=== PATIENT | female | born 1965 | race Caucasian/White ===

== ENCOUNTER → 2016-12-04 | Outpatient (CLI) | payer MEDICARE, OTHER ==
[~2016-12-04] MED LIST: AMPYRA10 MG PO; AMRIX15 MG PO; AUBAGIO14 MG PO; ESOMEPRAZOLE MA40 MG PO; LORTAB 5-325 M1 EACH PO; NEURONTIN 300300 MG PO; NORCO 10-325 T1 EACH PO; SYMMETREL 100100 MG PO; VENTOLIN INHALER INH
[2016-12-04 08:42] LABS: HEMOGLOBIN 13.6 gm/dl (12.3-15.3); RED BLOOD COUNT 6.82 M/UL (4.00-5.10); WHITE BLOOD COUNT 6.1 K/UL (4.5-11.0)
[2016-12-04 08:58] LABS: BUN/CREATININE RATIO 11 (0-10)
== END ==
LOC: OPSV2 07:46
PROVIDERS: Orthopaedic Surgery
DX: Z01.812 Encounter for preprocedural laboratory examination (principal); M71.9 Bursopathy, unspecified; L72.0 Epidermal cyst
CPT/HCPCS: 36415; 80048; 85025; 93005

== ENCOUNTER → 2020-07-05 | Outpatient (CLI) | payer MEDICARE, OTHER ==
[~2020-07-05] MED LIST changes: +ALBUTEROL2.5 MG/3 M PO; +AMOXICILLIN875 MG PO; +AUGMENTIN 500-500 MG PO; +COLCHICINE 0.60.6 MG PO; +ECOTRIN81 MG PO; +FOLIC ACID0.8 MG PO; +GLUCOTROL5 MG PO; +LEVOFLOXACIN750 MG PO; +MYCOSTATIN100000 UTS PO; +NICOTINE PATCH1 EAC5 TD; -NORCO 10-325 T1 EACH PO; +NORCO 5-325 TA1 EACH PO; +PROVIGIL200 MG PO; +TOPROL XL25 MG PO; +VENTOLIN HFA 66.7 GM INH
== END ==
LOC: EMI 08:52
DX: G35 Multiple sclerosis (principal); R90.89 Other abnormal findings on diagnostic imaging of central nervous system
CPT/HCPCS: 70553; A9577

== ENCOUNTER → 2021-03-12 | Outpatient (CLI) | payer MEDICARE, OTHER ==
[2021-03-13 08:14] LABS: COMPLEMENT C3, SERUM 194 mg/dL (82-167); COMPLEMENT C4, SERUM 28 mg/dL (12-38); HBSAG SCREEN Negative (Negative); HCV AB 0.1 (0.0-0.9); HEP B CORE AB, TOT Negative (Negative); RHEUMATOID ARTHRITIS FACTOR 106.2 IU/mL (0.0-13.9)
[2021-03-13 16:14] LABS: A/G RATIO 0.7 (0.7-1.7); ALBUMIN 3.2 g/dL (2.9-4.4); ALPHA-1-GLOBULIN 0.4 g/dL (0.0-0.4); ALPHA-2-GLOBULIN 1.1 g/dL (0.4-1.0); BETA GLOBULIN 1.6 g/dL (0.7-1.3); GAMMA GLOBULIN 1.4 g/dL (0.4-1.8); GLOBULIN, TOTAL 4.4 g/dL (2.2-3.9); M-SPIKE Not Observed g/dL (Not Observed); PROTEIN, TOTAL, SERUM 7.6 g/dL (6.0-8.5)
== END ==
LOC: LAB 10:49
PROVIDERS: Internal Medicine
DX: M06.9 Rheumatoid arthritis, unspecified (principal); D89.89 Other specified disorders involving the immune mechanism, not elsewhere classified; M25.50 Pain in unspecified joint; M54.2 Cervicalgia; R76.9 Abnormal immunological finding in serum, unspecified; R53.82 Chronic fatigue, unspecified; Z11.59 Encounter for screening for other viral diseases; Z79.899 Other long term (current) drug therapy
CPT/HCPCS: 36415; 73130; 73630; 83520; 84155; 84165; 86160; 86200; 86431; 86704; 86803; 87340

== ENCOUNTER → 2021-04-29 | Outpatient (CLI) | payer MEDICARE | LOC: EXRD 14:06 | DX: M81.0 Age-related osteoporosis without current pathological fracture (principal); M85.89 Other specified disorders of bone density and structure, multiple sites | CPT/HCPCS: 77080 ==

== ENCOUNTER 2021-07-16 06:26 | Inpatient (IN) | payer MEDICARE, OTHER ==
[~2021-07-16] VITALS: Ht 157.5 cm; Wt 72.6 kg
[~2021-07-16 06:26] MED LIST changes: +PROAIR HFA8.5 GM INH; -VENTOLIN HFA 66.7 GM INH
[2021-07-16 06:46] LABS: HEMOGLOBIN 12.1 gm/dl (12.3-15.3); RED BLOOD COUNT 6.44 M/UL (4.00-5.10); WHITE BLOOD COUNT 13.2 K/UL (4.5-11.0)
[2021-07-16 07:35] LABS: BUN/CREATININE RATIO 14 (0-10)
[2021-07-16] MEDS ORDERED: PREDNISONE5 MG PO (14:08)
[2021-07-16] MEDS ORDERED: VITAMIN D21250 MCG PO (14:09)
[2021-07-16] MEDS ORDERED: HYDROXYCHLOROQ200 MG PO (14:09)
[2021-07-16] MEDS ORDERED: SULFASALAZINE500 MG PO (14:11)
[2021-07-16] MEDS ORDERED: VITAMIN C500 M2 PO (14:12)
[2021-07-16] MEDS ORDERED: FISH OIL 1,0001 EACH PO (14:12)
[2021-07-16] MEDS ORDERED: VITAMIN B-12250 MCG PO (14:12)
[2021-07-16] MEDS ORDERED: ZINC50 M2 PO (14:13)
[2021-07-16] MEDS ORDERED: HARD NAILS2500 MCG PO (14:13)
[2021-07-17 05:02] LABS: HEMOGLOBIN 10.8 gm/dl (12.3-15.3); RED BLOOD COUNT 5.87 M/UL (4.00-5.10)
[2021-07-17 05:12] LABS: WHITE BLOOD COUNT 7.8 K/UL (4.5-11.0)
[2021-07-17 05:52] LABS: BUN/CREATININE RATIO 19 (0-10)
[2021-07-18 07:02] LABS: HEMOGLOBIN 10.5 gm/dl (12.3-15.3); RED BLOOD COUNT 5.81 M/UL (4.00-5.10); WHITE BLOOD COUNT 9.6 K/UL (4.5-11.0)
[2021-07-18 07:30] LABS: BUN/CREATININE RATIO 22 (0-10)
--- NOTE | 2021-07-18 08:53 | NUR ---
DIEGO STATES SHE HAS NO PROBLEM URINATING. ASKED THAT LYNN BE REMOVED. LYNN DC'D NURSE DRIVEN PROTOCOL. GAVE PATIENT "HAT" IN RESTROOM TO MEASURE OUTPUT TO DAT NO RETENTION ISSUES. WILL CONTINUE TO MONITOR.
[2021-07-18] MEDS ORDERED: SPIRIVA HANDIH18 MCG INH (11:59)
[2021-07-18] MEDS ORDERED: LEVOFLOXACIN750 MG PO (11:59)
== END 2021-07-18 14:59 | disposition home or self-care (01) | DRG 193 ==
LOC: ER1 06:26 → CDU 09:36 → MED SURG 4 09:36
PROVIDERS: Physician Assistant; Student in an Organized Health Care Education/Training Program; ADMIT Internal Medicine
DX: J18.9 Pneumonia, unspecified organism (principal); J96.01 Acute respiratory failure with hypoxia; J96.02 Acute respiratory failure with hypercapnia; J44.0 Chronic obstructive pulmonary disease with (acute) lower respiratory infection; I50.32 Chronic diastolic (congestive) heart failure; J44.1 Chronic obstructive pulmonary disease with (acute) exacerbation; E11.65 Type 2 diabetes mellitus with hyperglycemia; D53.9 Nutritional anemia, unspecified; I11.0 Hypertensive heart disease with heart failure; I25.10 Atherosclerotic heart disease of native coronary artery without angina pectoris; G35 Multiple sclerosis; F17.200 Nicotine dependence, unspecified, uncomplicated; Z20.822 Contact with and (suspected) exposure to COVID-19; M06.9 Rheumatoid arthritis, unspecified; Z79.52 Long term (current) use of systemic steroids; Z90.710 Acquired absence of both cervix and uterus; Z98.890 Other specified postprocedural states; Z88.5 Allergy status to narcotic agent; Z82.49 Family history of ischemic heart disease and other diseases of the circulatory system; Z79.899 Other long term (current) drug therapy; Z68.29 Body mass index [BMI] 29.0-29.9, adult
CPT/HCPCS: 36415; 36600; 70450; 71045; 80048; 80053; 81001; 82550; 82553; 82728; 82803; 82962; 83036; 83540; 83550; 83605; 83735; 84484; 85025; 87040; 93005; 94640; 94660; 94664; 94760; 96374; 96375; 99285; J0456; J0696; J2920; J7030; Q9967; U0002

== ENCOUNTER 2021-08-07 21:38 | Inpatient (IN) | payer MEDICARE, OTHER ==
[~2021-08-07] VITALS: Ht 157.5 cm; Wt 76.5 kg
[~2021-08-07 21:38] MED LIST changes: +FISH OIL 1,0001 EACH PO; +HARD NAILS2500 MCG PO; +HYDROXYCHLOROQ200 MG PO; +PREDNISONE5 MG PO; +SPIRIVA HANDIH18 MCG INH; +SULFASALAZINE500 MG PO; +VITAMIN B-12250 MCG PO; +VITAMIN C500 M2 PO; +VITAMIN D21250 MCG PO; +ZINC50 M2 PO
[2021-08-07 22:11] LABS: HEMOGLOBIN 11.8 gm/dl (12.3-15.3); RED BLOOD COUNT 6.31 M/UL (4.00-5.10); WHITE BLOOD COUNT 12.8 K/UL (4.5-11.0)
[2021-08-07 22:40] LABS: BUN/CREATININE RATIO 17 (0-10)
[2021-08-08] MEDS ORDERED: GLIPIZIDE5 MG PO (10:51)
[2021-08-08] MEDS ORDERED: NICOTINE PATCH1 EAC5 TOP (10:52)
[2021-08-09 02:42] LABS: HEMOGLOBIN 10.1 gm/dl (12.3-15.3)
[2021-08-09 02:52] LABS: RED BLOOD COUNT 5.5 M/UL (4.00-5.10); WHITE BLOOD COUNT 8.6 K/UL (4.5-11.0)
[2021-08-09 03:05] LABS: BUN/CREATININE RATIO 26 (0-10)
[2021-08-09] MEDS ORDERED: SPIRIVA RESPIMAT4 GM INH (10:11)
[2021-08-09] MEDS ORDERED: COMBIVENT RESPIM4 GM INH (10:13)
== END 2021-08-09 12:25 | disposition home or self-care (01) | DRG 189 ==
LOC: ER1 21:38 → CDU 08-08 01:14 → PROG CARE 08-08 18:12
PROVIDERS: Student in an Organized Health Care Education/Training Program; ADMIT Internal Medicine
PROC: 5A09357 Assistance with Respiratory Ventilation, Less than 24 Consecutive Hours, Continuous Positive Airway Pressure (ICD-10-PCS; principal; 2021-08-08)
DX: J96.21 Acute and chronic respiratory failure with hypoxia (principal); G93.41 Metabolic encephalopathy; J44.1 Chronic obstructive pulmonary disease with (acute) exacerbation; E87.2 Acidosis; Z20.822 Contact with and (suspected) exposure to COVID-19; I16.0 Hypertensive urgency; J96.22 Acute and chronic respiratory failure with hypercapnia; I25.10 Atherosclerotic heart disease of native coronary artery without angina pectoris; I10 Essential (primary) hypertension; M06.9 Rheumatoid arthritis, unspecified; G35 Multiple sclerosis; E11.65 Type 2 diabetes mellitus with hyperglycemia; Z98.890 Other specified postprocedural states; Z87.891 Personal history of nicotine dependence; Z82.49 Family history of ischemic heart disease and other diseases of the circulatory system; Z88.5 Allergy status to narcotic agent; Z88.8 Allergy status to other drugs, medicaments and biological substances; Z79.4 Long term (current) use of insulin; Z95.1 Presence of aortocoronary bypass graft; Z79.52 Long term (current) use of systemic steroids; Z79.899 Other long term (current) drug therapy
CPT/HCPCS: 36415; 36600; 71045; 80048; 80053; 82550; 82553; 82803; 82962; 83605; 83735; 83880; 84484; 85025; 85379; 87040; 93005; 94640; 94660; 94664; 94760; 96374; 96375; 99285; J0456; J0696; J1650; J2920; J7030; Q9967; U0002

== ENCOUNTER → 2022-01-28 | Outpatient (CLI) | payer MEDICARE, OTHER ==
[~2022-01-28] MED LIST changes: +COMBIVENT RESPIM4 GM INH; +GLIPIZIDE5 MG PO; +NICOTINE PATCH1 EAC5 TOP; +SPIRIVA RESPIMAT4 GM INH
== END ==
LOC: EMI 13:10
DX: G35 Multiple sclerosis (principal); R90.82 White matter disease, unspecified
CPT/HCPCS: 70553; A9577